=== PATIENT | female | born 1955 | race Caucasian/White ===

== ENCOUNTER 2018-01-23 08:02 | Day surgery (SDC) | payer BC ==
[~2018-01-23 08:02] MED LIST: Lactated Ringers 1,000 ML IV SCH; Sodium Chloride 0.9% 10 ML Syringe FLUSH PRN
[2018-01-23] MEDS ORDERED: fentaNYL 100 MCG/2 ML SDV ONE ×2 (08:43→09:19)
[2018-01-23] MEDS ORDERED: Midazolam 1 MG/ML 2 ML SDV ONE ×2 (08:44→09:19)
[2018-01-23] MEDS ORDERED: Propofol 200 MG/20 ML SDV ONE ×2 (08:44→09:19)
--- NOTE | 2018-01-23 09:24 | PCM.HPR ---
H & P Addendum review - H & P Addendum Review Date of Original H & P: 01/08/18 Date Reviewed: 01/23/18 Time Reviewed: 15:00 Patient was Examined: No Changes
--- NOTE | 2018-01-23 09:48 | PCM.OPNOTE ---
- General Post-Op/Procedure Note Date of Surgery/Procedure: 01/23/18 Findings: Sig tics / polyp Pre Op Diagnosis: Colon Screening Post-Op Diagnosis: Same Anesthesia Technique: MAC Primary Surgeon: Anuj Cabrera Anesthesia Provider: Mary SOLANO in mLs: 0 Complications: None Condition: Good
--- NOTE | 2018-01-23 10:56 | PCM.OPNOTE ---
- General Post-Op/Procedure Note Date of Surgery/Procedure: 01/23/18 Operative Procedure(s): Colonoscopy with polypectomy Findings: Sig tics / polyps Pre Op Diagnosis: FH Colon Cancer Post-Op Diagnosis: Same Anesthesia Technique: MAC Primary Surgeon: Anuj Cabrera Anesthesia Provider: Mary Allison EBL in mLs: 0 Complications: None Condition: Good Free Text/Narrative:: Intake & Output 01/22/18 01/23/18 01/23/18 22:59 06:59 14:59 Intake Total 400 Balance 400
--- NOTE | 2018-01-23 12:41 | OR ---
Date of Procedure: 01/23/2018 PREOPERATIVE DIAGNOSIS: Colon screening. POSTOPERATIVE DIAGNOSES: 1. Sigmoid colon polyp. 2. Sigmoid diverticulosis. PROCEDURE: Colonoscopy with polypectomy. ANESTHESIA: IV sedation. DESCRIPTION OF PROCEDURE: The patient was brought to the procedure room, where she was placed on her left side and IV sedation administered. Digital rectal exam was performed, which was normal. Colonoscope was inserted and advanced to the level of the cecum with some difficulty getting through a tortuous sigmoid colon. The cecum was reached and confirmed by identifying the appendiceal lumen and ileocecal valve. Prep was very good and surfaces were well visualized. Upon withdrawing the scope, the ascending, transverse, and descending colon were normal in appearance. Sigmoid colon had several medium-sized diverticula present and colon was quite tortuous. There is a 7-mm sessile polyp located at 15 cm from the anal verge that was removed with the cautery snare and retrieved in the polyp trap. Rectum was normal and retroflexion was normal. Air was removed and the scope withdrawn. The patient tolerated the procedure well and returned to recovery in stable condition. The patient will be contacted with the pathology report when it returns. If polyp is adenomatous, she should undergo a repeat colonoscopy again in 3 years. If the polyp is hyperplastic, she could wait 10 years until her next colon screening. VICKI BUI MD /[id number]
== END 2018-01-23 11:38 | disposition home or self-care (01) ==
LOC: LL.SDS 08:02
PROVIDERS: ATTEND Surgery
DX: Z12.11 Encounter for screening for malignant neoplasm of colon (principal); D12.5 Benign neoplasm of sigmoid colon; K57.30 Diverticulosis of large intestine without perforation or abscess without bleeding; E78.5 Hyperlipidemia, unspecified; M19.042 Primary osteoarthritis, left hand; M19.041 Primary osteoarthritis, right hand; K21.9 Gastro-esophageal reflux disease without esophagitis; F33.9 Major depressive disorder, recurrent, unspecified; I10 Essential (primary) hypertension; Z79.52 Long term (current) use of systemic steroids; Z79.82 Long term (current) use of aspirin; Z79.84 Long term (current) use of oral hypoglycemic drugs; Z79.899 Other long term (current) drug therapy
CPT/HCPCS: J2250; J2704; J3010; J7120

== ENCOUNTER 2021-12-21 10:16 | Day surgery (SDC) | payer MEDICARE, BC ==
[~2021-12-21 10:16] MED LIST changes: -Lactated Ringers 1,000 ML IV SCH; +Midazolam 1 MG/ML 2 ML SDV ONE; +Propofol 200 MG/20 ML SDV ONE; -Sodium Chloride 0.9% 10 ML Syringe FLUSH PRN
[2021-12-21] MEDS ORDERED: Lactated Ringers 1,000 ML IV SCH (10:30)
[2021-12-21] MEDS ORDERED: Sodium Chloride 0.9% 10 ML Syringe FLUSH PRN (10:30)
[2021-12-21] MEDS ORDERED: Propofol 200 MG/20 ML SDV ONE (11:18)
[2021-12-21] MEDS ORDERED: Midazolam 1 MG/ML 2 ML SDV ONE (11:18)
== END 2021-12-21 12:55 | disposition home or self-care (01) ==
LOC: LL.SDS 10:16
PROVIDERS: ATTEND Surgery
DX: Z12.11 Encounter for screening for malignant neoplasm of colon (principal); K57.30 Diverticulosis of large intestine without perforation or abscess without bleeding; E11.9 Type 2 diabetes mellitus without complications; F32.A Depression, unspecified; I10 Essential (primary) hypertension; M81.0 Age-related osteoporosis without current pathological fracture; E66.09 Other obesity due to excess calories; Z86.010 Personal history of colon polyps; Z68.34 Body mass index [BMI] 34.0-34.9, adult
CPT/HCPCS: 00812; J2250; J2704

== ENCOUNTER 2025-03-11 11:11 | Day surgery (SDC) | payer MEDICARE ==
[~2025-03-11 11:11] MED LIST changes: -Midazolam 1 MG/ML 2 ML SDV ONE; +Sodium Chloride 0.9% 10 ML Syringe FLUSH PRN
[2025-03-11] MEDS: Lactated Ringers 1,000 ML IV SCH (12:25)
== END 2025-03-11 14:10 | disposition home or self-care (01) ==
LOC: LL.SDS 11:11
PROVIDERS: ATTEND Surgery
DX: Z12.11 Encounter for screening for malignant neoplasm of colon (principal); Z86.0100 Personal history of colon polyps, unspecified; E11.9 Type 2 diabetes mellitus without complications; I10 Essential (primary) hypertension; F32.A Depression, unspecified; F41.9 Anxiety disorder, unspecified; Z79.84 Long term (current) use of oral hypoglycemic drugs; Z79.899 Other long term (current) drug therapy
CPT/HCPCS: 82947; J2704; J7120